=== PATIENT | female | born 1980 | race Caucasian/White ===

== ENCOUNTER 2017-11-07 23:48 | Inpatient (IN) | payer BC ==
[2017-11-08] MEDS ORDERED: ONDANSETRON 4 MG INJ IV (00:30)
[2017-11-08] MEDS ORDERED: BISACODYL (EC) 5 MG TAB PO (00:30)
[2017-11-08] MEDS ORDERED: NACL 0.9% 3 ML SYG IV (00:30)
[2017-11-08] MEDS ORDERED: ACETAMINOPHEN 325 MG TAB PO (00:30)
[2017-11-08] MEDS ORDERED: DOCUSATE SODIUM 100 MG CAP PO (00:30)
[2017-11-08] MEDS: morphine 2 MG INJ IV (00:54)
[2017-11-08] MEDS: SOD CHLORIDE 0.9% 1,000 ML IV ×2 (00:55→12:37)
[2017-11-08] MEDS: PIPER-TAZO 3.375 GM IV (PMX) 100 ML IVPB ×4 (00:55→18:45)
[2017-11-08 01:18] LABS: ADD MAN DIFF? NO
[2017-11-08 01:21] LABS: BASOPHIL # 0.1 10^3/ul (0.0-0.1); BASOPHILS % 0.4 % (0.0-2.0); HEMATOCRIT 41.7 % (37.0-47.0); HEMOGLOBIN 13.8 g/dl (12.0-16.0); LYMPHOCYTES # 2.3 10^3/ul (0.8-2.9); LYMPHOCYTES % 18.5 % (15.0-51.0); MEAN CORPUSCULAR HEMOGLOBIN 27.5 pg (29.0-33.0); MEAN CORPUSCULAR HGB CONC 33.1 g/dl (32.0-37.0); MEAN CORPUSCULAR VOLUME 83.2 fl (82.0-101.0); MEAN PLATELET VOLUME 9.8 fl (7.4-10.4); MONOCYTES % 7.7 % (0.0-11.0); NEUTROPHIL # 9.2 10^3/ul (1.6-7.5); PLATELET COUNT 347 10^3/UL (140-415); RED BLOOD COUNT 5.01 10^6/ul (4.20-5.40)
[2017-11-08 01:21] LABS: WHITE BLOOD COUNT 12.6 10^3/ul (4.8-10.8)
[2017-11-08 01:45] LABS: ALANINE AMINOTRANSFERASE 354 IU/L (13-69); ALBUMIN/GLOBULIN RATIO 1.21; ALKALINE PHOSPHATASE 211 IU/L (42-121); ANION GAP 15 (8-16); ASPARTATE AMINO TRANSFERASE 213 IU/L (15-46); BILIRUBIN,INDIRECT 0.9 mg/dl (0-1.1); BILIRUBIN,TOTAL 1.9 mg/dl (0.2-1.3); BLOOD UREA NITROGEN 12 mg/dl (7-20); CALCIUM 9.4 mg/dl (8.4-10.2); CARBON DIOXIDE 26 mmol/L (21-31); CHLORIDE 104 mmol/L (97-110); CHOL/HDL RATIO 2.4 RATIO; CHOLESTEROL 167 mg/dl (100-200); CREATININE 0.75 mg/dl (0.44-1.00); GLUCOSE 99 mg/dl (70-220); HDL CHOLESTEROL 68 mg/dl (34-82); LDL CHOLESTEROL,CALCULATED 87 mg/dl; MAGNESIUM 2.3 mg/dl (1.7-2.5); POTASSIUM 3.8 mmol/L (3.5-5.1); SODIUM 141 mmol/L (135-144); TOTAL PROTEIN 7.3 g/dl (6.1-8.1); TRIGLYCERIDES 59 mg/dl (0-149)
[2017-11-08 01:46] LABS: HEMOGLOBIN A1C 5.7 % (0-5.9)
[2017-11-08 01:59] LABS: PROTIME 12.2 Sec (11.9-14.9)
[2017-11-08 03:00] LABS: PARTIAL THROMBOPLASTIN TIME 28.6 Sec (25.0-35.0)
[2017-11-09 05:17] LABS: ADD MAN DIFF? NO
[2017-11-09 05:22] LABS: WHITE BLOOD COUNT 8.6 10^3/ul (4.8-10.8)
[2017-11-09 05:22] LABS: BASOPHIL # 0.1 10^3/ul (0.0-0.1); BASOPHILS % 0.6 % (0.0-2.0); HEMATOCRIT 38.8 % (37.0-47.0); HEMOGLOBIN 12.8 g/dl (12.0-16.0); LYMPHOCYTES # 1.8 10^3/ul (0.8-2.9); LYMPHOCYTES % 21.4 % (15.0-51.0); MEAN CORPUSCULAR HEMOGLOBIN 27.6 pg (29.0-33.0); MEAN CORPUSCULAR VOLUME 83.8 fl (82.0-101.0); MEAN PLATELET VOLUME 9.9 fl (7.4-10.4); MONOCYTE # 0.7 10^3/ul (0.3-0.9); MONOCYTES % 7.7 % (0.0-11.0); NEUTROPHILS % 69.8 % (39.0-77.0); PLATELET COUNT 310 10^3/UL (140-415); RED BLOOD COUNT 4.63 10^6/ul (4.20-5.40)
[2017-11-09 05:58] LABS: PHOSPHORUS 3.2 mg/dl (2.5-4.9)
[2017-11-09 05:58] LABS: MAGNESIUM 2.2 mg/dl (1.7-2.5)
[2017-11-09 06:01] LABS: ALANINE AMINOTRANSFERASE 308 IU/L (13-69); ALBUMIN 3.7 g/dl (3.3-4.9); ALBUMIN/GLOBULIN RATIO 1.23; ALKALINE PHOSPHATASE 219 IU/L (42-121); AMYLASE 77 U/L (11-123); ANION GAP 16 (8-16); ASPARTATE AMINO TRANSFERASE 150 IU/L (15-46); BILIRUBIN,INDIRECT 0.8 mg/dl (0-1.1); BILIRUBIN,TOTAL 2.1 mg/dl (0.2-1.3); BLOOD UREA NITROGEN 7 mg/dl (7-20); CALCIUM 9.1 mg/dl (8.4-10.2); CARBON DIOXIDE 25 mmol/L (21-31); CHLORIDE 107 mmol/L (97-110); GLUCOSE 93 mg/dl (70-220); LIPASE 250 U/L (23-300); POTASSIUM 3.6 mmol/L (3.5-5.1); SODIUM 144 mmol/L (135-144); TOTAL PROTEIN 6.7 g/dl (6.1-8.1)
[2017-11-09] MEDS: PIPER-TAZO 3.375 GM IV (PMX) 100 ML IVPB ×4 (06:47→18:47)
[2017-11-09] MEDS ORDERED: LIDOCAINE 2% (SDV) 5 ML INJ (07:00)
[2017-11-09] MEDS: INDOMETHACIN 50 MG SUPP PR (13:30)
[2017-11-09] MEDS: SOD CHLORIDE 0.9% 1,000 ML IV ×2 (13:45)
[2017-11-09] MEDS ORDERED: IOHEXOL 300MG/ML 30 ML BTL (15:48)
[2017-11-09] MEDS ORDERED: ROCURONIUM 50 MG INJ (15:58)
[2017-11-09] MEDS ORDERED: PROPOFOL 100 ML (15:58)
[2017-11-09] MEDS ORDERED: EPHEDrine SULFATE 50 MG/5 ML SYG IV (16:30)
[2017-11-09] MEDS ORDERED: MIDAZOLAM 1 MG/ML 2 ML INJ IV (16:30)
[2017-11-09] MEDS ORDERED: DIPHENHYDRAMINE 50 MG INJ IV (16:30)
[2017-11-09] MEDS ORDERED: HYDROmorphONE (0.2 MG/ML) 10ML SYG IV ×3 (16:30)
[2017-11-09] MEDS ORDERED: MEPERIDINE 25 MG INJ IV (16:30)
[2017-11-09] MEDS ORDERED: OXYCODONE/ACETAMINOPHEN (5/325) TAB PO ×2 (16:30)
[2017-11-09] MEDS ORDERED: METOCLOPRAMIDE 10 MG INJ IV (16:30)
[2017-11-09] MEDS ORDERED: ALBUTEROL 0.083% (NEB) 2.5 MG/3 ML AMP HHN (16:30)
[2017-11-09] MEDS ORDERED: KETOROLAC 30 MG INJ IV (16:30)
[2017-11-09] MEDS ORDERED: hydrALAzine 20 MG INJ IV (16:30)
[2017-11-09] MEDS ORDERED: ONDANSETRON 4 MG INJ IV (16:30)
[2017-11-09] MEDS ORDERED: LABETALOL HCL 20MG INJ IV (16:30)
[2017-11-09] MEDS ORDERED: FENTAnyl 50 MCG/ML VIAL IV ×3 (16:30)
[2017-11-09] MEDS ORDERED: DEXAMETHASONE 4 MG/ML 1 ML INJ (16:40)
[2017-11-09] MEDS ORDERED: ONDANSETRON 4 MG INJ (16:42)
[2017-11-09] MEDS ORDERED: KETOROLAC 30 MG INJ (16:42)
[2017-11-09] MEDS ORDERED: SUGAMMADEX SODIUM 200 MG/2 ML VIAL IV (16:56)
[2017-11-10] MEDS: PIPER-TAZO 3.375 GM IV (PMX) 100 ML IVPB ×2 (00:15→06:07)
[2017-11-10] MEDS: SOD CHLORIDE 0.9% 1,000 ML IV (02:07)
== END 2017-11-10 12:05 | disposition home or self-care (01) | DRG 445 ==
LOC: MS1 23:48
PROC: 0F798ZZ Dilation of Common Bile Duct, Via Natural or Artificial Opening Endoscopic (ICD-10-PCS; principal; 2017-11-09 16:00)
DX: K80.70 Calculus of gallbladder and bile duct without cholecystitis without obstruction (principal); Z68.41 Body mass index [BMI] 40.0-44.9, adult; E66.01 Morbid (severe) obesity due to excess calories; F41.9 Anxiety disorder, unspecified; F17.290 Nicotine dependence, other tobacco product, uncomplicated
CPT/HCPCS: 74181; 74330; 80053; 80061; 82150; 83036; 83690; 83735; 84100; 84443; 84703; 85025; 85610; 85730

== ENCOUNTER 2018-03-02 06:44 | Day surgery (SDC) | payer BC ==
[2018-03-02] MEDS ORDERED: SOD CHLORIDE 0.9% 1,000 ML IV (07:00)
[2018-03-02] MEDS ORDERED: CEFAZOLIN 1 GM/50 ML (PMX) 50 ML IVPB (07:00)
[2018-03-02 08:12] LABS: ADD MAN DIFF? NO
[2018-03-02 08:13] LABS: WHITE BLOOD COUNT 10.7 10^3/ul (4.8-10.8)
[2018-03-02 08:13] LABS: BASOPHIL # 0.1 10^3/ul (0.0-0.1); BASOPHILS % 0.6 % (0.0-2.0); HEMATOCRIT 40.2 % (37.0-47.0); HEMOGLOBIN 13.5 g/dl (12.0-16.0); LYMPHOCYTES # 2.6 10^3/ul (0.8-2.9); LYMPHOCYTES % 24.3 % (15.0-51.0); MEAN CORPUSCULAR HEMOGLOBIN 27.8 pg (29.0-33.0); MEAN CORPUSCULAR HGB CONC 33.6 g/dl (32.0-37.0); MEAN CORPUSCULAR VOLUME 82.7 fl (82.0-101.0); MEAN PLATELET VOLUME 9.6 fl (7.4-10.4); MONOCYTE # 0.7 10^3/ul (0.3-0.9); MONOCYTES % 6.8 % (0.0-11.0); NEUTROPHIL # 7.2 10^3/ul (1.6-7.5); NEUTROPHILS % 67.7 % (39.0-77.0); PLATELET COUNT 359 10^3/UL (140-415); RED BLOOD COUNT 4.86 10^6/ul (4.20-5.40); RED CELL DISTRIBUTION WIDTH 12.1 % (11.5-14.5)
[2018-03-02] MEDS ORDERED: ROCURONIUM 50 MG INJ (08:25)
[2018-03-02] MEDS ORDERED: ROPIVACAINE 0.5 % 30 ML VIAL (08:25)
[2018-03-02] MEDS ORDERED: PROPOFOL 20 ML (08:25)
[2018-03-02] MEDS ORDERED: CEFAZOLIN 1 GM INJ (08:25)
[2018-03-02] MEDS ORDERED: MIDAZOLAM 1 MG/ML 2 ML INJ (08:25)
[2018-03-02 08:31] LABS: INR 0.94; PROTIME 12.7 Sec (11.9-14.9)
[2018-03-02 08:32] LABS: PARTIAL THROMBOPLASTIN TIME 31.5 Sec (25.0-35.0)
[2018-03-02 08:40] LABS: ALANINE AMINOTRANSFERASE 30 IU/L (13-69); ALBUMIN 4.1 g/dl (3.3-4.9); ALBUMIN/GLOBULIN RATIO 1.41; ALKALINE PHOSPHATASE 136 IU/L (42-121); ANION GAP 18 (8-16); ASPARTATE AMINO TRANSFERASE 15 IU/L (15-46); BILIRUBIN,INDIRECT 0.3 mg/dl (0-1.1); BILIRUBIN,TOTAL 0.3 mg/dl (0.2-1.3); CARBON DIOXIDE 24 mmol/L (21-31); CHLORIDE 103 mmol/L (97-110); GLUCOSE 112 mg/dl (70-220)
[2018-03-02 08:41] LABS: BLOOD UREA NITROGEN 13 mg/dl (7-20); POTASSIUM 4.2 mmol/L (3.5-5.1); SODIUM 141 mmol/L (135-144)
[2018-03-02 08:42] LABS: CALCIUM 9.5 mg/dl (8.4-10.2); CREATININE 0.63 mg/dl (0.44-1.00)
[2018-03-02] MEDS: BUPIVACAINE 0.25%/EPI (SDV) 30 ML INJ (09:29)
[2018-03-02] MEDS: LIDOCAINE 1% (MPF) 30 ML INJ (09:29)
[2018-03-02] MEDS ORDERED: ACETAMINOPHEN 1000MG/100ML IV 100 ML (09:47)
[2018-03-02] MEDS ORDERED: KETOROLAC 30 MG INJ (09:48)
[2018-03-02] MEDS ORDERED: DEXAMETHASONE 4 MG/ML 1 ML INJ (09:48)
[2018-03-02] MEDS ORDERED: SUGAMMADEX SODIUM 200 MG/2 ML VIAL IV (09:48)
[2018-03-02] MEDS ORDERED: ONDANSETRON 4 MG INJ (09:48)
[2018-03-02] MEDS ORDERED: METOCLOPRAMIDE 10 MG INJ (09:48)
[2018-03-02] MEDS ORDERED: OXYCODONE/ACETAMINOPHEN (5/325) TAB PO (10:00)
[2018-03-02] MEDS ORDERED: FENTAnyl 50 MCG/ML VIAL IV ×3 (10:00)
[2018-03-02] MEDS ORDERED: DIPHENHYDRAMINE 50 MG INJ IV (10:00)
[2018-03-02] MEDS ORDERED: EPHEDrine SULFATE 50 MG/5 ML SYG IV (10:00)
[2018-03-02] MEDS ORDERED: HYDROmorphONE 1 MG/5 ML IV SYRINGE IV (10:00)
[2018-03-02] MEDS ORDERED: ONDANSETRON 4 MG INJ IV (10:00)
[2018-03-02] MEDS ORDERED: METOCLOPRAMIDE 10 MG INJ IV (10:00)
[2018-03-02] MEDS: MEPERIDINE 25 MG INJ IV (11:11)
[2018-03-02] MEDS: HYDROmorphONE 1 MG/5 ML IV SYRINGE IV ×3 (11:16→11:33)
[2018-03-02] MEDS ORDERED: HYDROCODONE/APAP (5/325) TAB PO (11:30)
== END 2018-03-02 13:20 | disposition home or self-care (01) ==
LOC: SDS 06:44
DX: K80.12 Calculus of gallbladder with acute and chronic cholecystitis without obstruction (principal); E66.09 Other obesity due to excess calories; Z87.891 Personal history of nicotine dependence
CPT/HCPCS: 47562; 80053; 84703; 85025; 85610; 85730; 88304